=== PATIENT | male | born 1985 | race Caucasian/White ===

== ENCOUNTER 2017-02-06 22:14 | Emergency (ER) | payer BC ==
[~2017-02-06] VITALS: Ht 177.8 cm; Wt 84.1 kg
[~2017-02-06 22:14] MED LIST: DOXYCYCLINE HY100 MG PO
[2017-02-07] MEDS ORDERED: TRAMADOL HCL50 MG PO (00:54)
[2017-02-07] MEDS ORDERED: SKELAXIN800 MG PO (00:54)
[2017-02-07] MEDS ORDERED: NAPROSYN500 MG PO (00:54)
[2017-02-07 01:19] VITALS: BP 141/87
== END 2017-02-07 01:22 | disposition home or self-care (01) ==
LOC: EME 22:14
DX: R07.81 Pleurodynia (principal)
CPT/HCPCS: 71101; 99281; 99284; J1885